=== PATIENT | female | born 1960 | race Caucasian/White ===

== ENCOUNTER 2022-03-29 07:52 | Outpatient (CLI) | payer OTHER | END 2022-03-29 08:06 | disposition home or self-care (01) | LOC: TOM 07:52 | DX: Z86.010 Personal history of colon polyps (principal) ==

== ENCOUNTER 2023-02-18 06:25 | Day surgery (SDC) | payer OTHER ==
[~2023-02-18] VITALS: Ht 162.6 cm; Wt 86.2 kg
[~2023-02-18 06:25] MED LIST: ANASTROZOLE1 MG PO; COZAAR50 MG PO; PROZAC10 MG PO
== END 2023-02-18 18:40 | disposition home or self-care (01) ==
LOC: CIR.AMB 06:25
PROVIDERS: ATTEND Surgery
DX: C50.412 Malignant neoplasm of upper-outer quadrant of left female breast (principal); Z15.01 Genetic susceptibility to malignant neoplasm of breast; R59.0 Localized enlarged lymph nodes; N60.91 Unspecified benign mammary dysplasia of right breast; R92.1 Mammographic calcification found on diagnostic imaging of breast; N60.81 Other benign mammary dysplasias of right breast; N62 Hypertrophy of breast; Z90.13 Acquired absence of bilateral breasts and nipples; I10 Essential (primary) hypertension; Z20.822 Contact with and (suspected) exposure to COVID-19

== ENCOUNTER 2024-06-01 05:40 | Day surgery (SDC) | payer OTHER ==
[2024-05-29 09:17] LABS: HEMATOCRIT 37.7 % (36.0-45.00); HEMOGLOBIN 12.9 g/dL (12.0-15.00); MEAN CELL VOLUME 90.8 fL (80.00-100.00); MEAN CORPUSCULAR HGB CONC 34.1 g/dl (32.0-36.0); PLATELET COUNT 257 K/uL (150-450); RED BLOOD COUNT 4.16 M/uL (4.00-6.00); RED CELL DISTRIBUTION WIDTH 13.2 % (11.5-14.5)
[2024-05-29 09:24] LABS: PH,URINE 5.5 (5.0-8.0); URINE APPEARANCE Clear; URINE BILIRRUBIN Negative (NEGATIVE); URINE BLOOD Negative; URINE COLOR Yellow; URINE GLUCOSE Negative (NEGATIVE); URINE KETONE Trace (NEGATIVE); URINE LEUKOCYTE Negative; URINE NITRATE Negative; URINE PROTEIN Negative (NEGATIVE)
[2024-05-29 09:29] LABS: URINE BACTERIA 23.9 uL (0.0-1933); URINE EPITHELIAL CELLS 3.5 uL (0.0-38.8); URINE RBC 2.4 uL (0.0-20.8); URINE WBC 2.9 uL (0.0-23.2)
[2024-05-29 09:44] LABS: INR 1.02; PARTIAL THROMBOPLASTIN TIME 28.5 SECONDS (22.0-34.0); PROTHROMBIN TIME 10.7 SECONDS (9.0-11.5)
[2024-05-29 09:54] LABS: CREATININE SERUM 0.7 mg/dL (0.55-1.02); GFR 84.79; POTASSIUM 4.38 mEq/L (3.5-5.1)
[~2024-06-01] VITALS: Ht 162.6 cm; Wt 77.1 kg
[2024-06-01] MEDS ORDERED: POVIDONE-IODINE 118 ML BOTT TOP ONE (08:30)
[2024-06-01] MEDS ORDERED: CLINDAMYCIN PHOSPHATE 150 MG/ML (900mg) IV ONE (08:45)
[2024-06-01] MEDS ORDERED: POVIDONE-IODINE SCRUB 118 ML BOTT TOP ONE (08:45)
[2024-06-01] MEDS ORDERED: CEFAZOLIN SODIUM 1,000 MG VIAL IV ONE (08:45)
[2024-06-01] MEDS ORDERED: BUPIVACAINE HCL/PF 0.25% 30ML VIAL InF ONE (08:45)
[2024-06-01] MEDS ORDERED: GENTAMICIN SULFATE 40 MG/ML VIAL IV ONE (08:45)
[2024-06-01] MEDS ORDERED: MORPHINE SULFATE 4 MG/ML VIAL IV PRN (09:15)
[2024-06-01] MEDS ORDERED: ONDANSETRON HCL 2 MG/ML VIAL IV PRN (09:15)
== END 2024-06-01 11:45 | disposition home or self-care (01) ==
LOC: CIR.AMB 05:40
PROVIDERS: ATTEND Plastic Surgery
DX: C50.412 Malignant neoplasm of upper-outer quadrant of left female breast (principal); Z90.13 Acquired absence of bilateral breasts and nipples